=== PATIENT | female | born 1995 | race Asian ===

== ENCOUNTER 2019-07-13 09:41 | Inpatient (IN) | payer MEDICAID ==
[~2019-07-13] VITALS: Ht 152.4 cm; Wt 54.0 kg
[2019-07-13] MEDS ORDERED: LORazepam 2 MG TABLET PO PRN (10:15)
[2019-07-13] MEDS ORDERED: HALOPERIDOL 5 MG TABLET PO PRN (10:15)
[2019-07-13] MEDS ORDERED: ZOLPIDEM TARTRATE 10 MG TABLET PO PRN (10:15)
[2019-07-13 11:55] VITALS: BP 108/65
[2019-07-13 13:27] VITALS: BP 112/75
[2019-07-13] MEDS ORDERED: GLUCAGON,HUMAN RECOMBINANT 1 MG VIAL IM PRN (13:45)
[2019-07-13] MEDS ORDERED: INSULIN REGULAR, HUMAN 100 UNITS/ML SQ ONE (14:00)
[2019-07-13 14:20] LABS: GLUCOMETER DEV NAME(LOC) BV3S.; GLUCOSE,POINT OF CARE 473 MG/DL (70-110)
[2019-07-13] MEDS ORDERED: NICOTINE 14 MG/24 HOUR PATCH TD PRN (15:30)
[2019-07-13] MEDS ORDERED: MAGNESIUM HYDROXIDE SUSPENSION 30 ML UDCUP PO PRN (15:30)
[2019-07-13] MEDS ORDERED: GuaiFENesin/D-METHORPHAN [SUGAR-FREE] 200-20MG/10 ML SYRUP UDCUP PO PRN (15:30)
[2019-07-13] MEDS ORDERED: ONDANSETRON HCL 4 MG TABLET PO PRN (15:30)
[2019-07-13] MEDS ORDERED: MAG HYDROX/AL HYDROX/SIMETH ES 30 ML SUSPENSION UDCUP PO PRN (15:30)
[2019-07-13] MEDS ORDERED: IBUPROFEN 400 MG TABLET PO PRN (15:30)
[2019-07-13] MEDS ORDERED: LOPERAMIDE HCL 2 MG CAPSULE PO PRN (15:30)
[2019-07-13] MEDS ORDERED: DOCUSATE SODIUM 100 MG CAPSULE PO PRN (15:30)
[2019-07-13] MEDS ORDERED: PETROLATUM,WHITE 28 GM JELLY TP PRN (15:30)
[2019-07-13] MEDS ORDERED: ALBUTEROL SULFATE HFA 90 MCG/PUFF 8 GM INHALER IH PRN (15:30)
[2019-07-13] MEDS ORDERED: ACETAMINOPHEN 325 MG TABLET PO PRN (15:30)
[2019-07-13] MEDS ORDERED: CloNIDine HCL 0.1 MG TABLET PO PRN (15:30)
[2019-07-13 15:36] LABS: GLUCOMETER DEV NAME(LOC) BV3S.; GLUCOSE,POINT OF CARE 443 MG/DL (70-110)
[2019-07-13 16:27] VITALS: BP 124/68
[2019-07-13 16:46] LABS: GLUCOMETER DEV NAME(LOC) BV3S.; GLUCOSE,POINT OF CARE 290 MG/DL (70-110)
[2019-07-13] MEDS: INSULIN GLARGINE,HUM.REC.ANLOG 100 UNITS/ML SQ SCH (16:54)
[2019-07-13] MEDS: INSULIN LISPRO 100 UNITS/ML SQ PRN ×2 (16:55→21:33)
[2019-07-13] MEDS: BACITRACIN 28.4 GM OINTMENT TP SCH (17:02)
[2019-07-13 20:56] LABS: GLUCOMETER DEV NAME(LOC) BV3S.; GLUCOSE,POINT OF CARE 254 MG/DL (70-110)
[2019-07-13] MEDS ORDERED: DiphenhydrAMINE HCL 25 MG CAPSULE PO ONE (21:00)
[2019-07-14] MEDS: INSULIN LISPRO 100 UNITS/ML SQ PRN ×4 (06:31→21:12)
[2019-07-14 06:33] LABS: GLUCOMETER DEV NAME(LOC) BV3S.; GLUCOSE,POINT OF CARE 159 MG/DL (70-110)
[2019-07-14 06:54] VITALS: BP 118/67
[2019-07-14 08:27] LABS: EOSINOPHILS % (AUTO) 7.2 % (1.0-6.0); HEMATOCRIT 41.8 % (36-46); HEMOGLOBIN 13.6 g/dL (12.0-16.0); LYMPHOCYTES # (AUTO) 1.6 K/uL (1.0-4.8); LYMPHOCYTES % (AUTO) 26.5 % (22.0-44.0); MEAN CORPUSCULAR HEMOGLOBIN 30.6 pg (26.0-34.0); MEAN CORPUSCULAR HGB CONC 32.6 G/dL (31.0-37.0); MEAN CORPUSCULAR VOLUME 94 fL (80-100); MONOCYTES # (AUTO) 0.5 K/uL (0.1-1.0); MONOCYTES % (AUTO) 9.3 % (2.0-9.0); NEUTROPHILS # (AUTO) 3.3 K/uL (1.8-7.7); PLATELET COUNT (AUTO) 233 K/uL (150-450); RED BLOOD CELL COUNT(AUTO) 4.45 MIL/uL (4.00-5.20)
[2019-07-14 08:33] VITALS: BP 113/78
[2019-07-14] MEDS: INSULIN GLARGINE,HUM.REC.ANLOG 100 UNITS/ML SQ SCH ×2 (09:01→17:16)
[2019-07-14] MEDS: BACITRACIN 28.4 GM OINTMENT TP SCH ×2 (09:02→16:02)
[2019-07-14 09:03] LABS: ALANINE AMINOTRANSFERASE 46 U/L (12-78); ALBUMIN 3.9 g/dL (3.4-5.0); ALKALINE PHOSPHATASE 98 U/L (46-116); ANION GAP 12 mmol/L (8-16); ASPARTATE AMINOTRANSFERASE 43 U/L (15-37); BILIRUBIN,TOTAL 0.5 mg/dL (0.1-1.0); CALCIUM, TOTAL 9.1 mg/dL (8.8-10.5); CARBON DIOXIDE 26 mmol/L (22-29); CHLORIDE 102 mmol/L (98-107); CHOL/HDL RATIO 2.6 (3.9-5.7); CHOLESTEROL 181 mg/dL (131-200); CREATININE 0.72 mg/dL (0.60-1.30); GLOMERULAR FILTR. RATE CALC > 60 mL/min (>60); GLUCOSE,RANDOM 217 mg/dL (70-110); HCG,QUANTITATIVE < 1 mIU/mL (0-6); HDL CHOLESTEROL 69 mg/dL (40-60); LDL CHOL (CALC.) 94 mg/dL (0-130); POTASSIUM 4.3 mmol/L (3.5-5.1); SODIUM SERUM 140 mmol/L (136-145); TOTAL PROTEIN, SERUM 7.2 g/dL (6.4-8.2); TRIGLYCERIDES 91 mg/dL (15-150); UREA NITROGEN, BLOOD 18 mg/dL (7-18)
[2019-07-14 09:47] LABS: HEMOGLOBIN A1C 8.1 % (3.8-5.6)
[2019-07-14 11:12] LABS: GLUCOMETER DEV NAME(LOC) BV3S.; GLUCOSE,POINT OF CARE 311 MG/DL (70-110)
[2019-07-14] MEDS: OLANZapine 5 MG TABLET PO SCH (16:02)
[2019-07-14 16:23] LABS: GLUCOMETER DEV NAME(LOC) BV3S.; GLUCOSE,POINT OF CARE 271 MG/DL (70-110)
[2019-07-14 16:42] VITALS: BP 128/74
[2019-07-14 20:04] LABS: GLUCOMETER DEV NAME(LOC) BV3S.; GLUCOSE,POINT OF CARE 235 MG/DL (70-110)
[2019-07-15 02:05] VITALS: BP 120/71
[2019-07-15] MEDS ORDERED: PERMETHRIN 5% 60 GM CREAM TP ONE (06:30)
[2019-07-15 06:47] LABS: GLUCOMETER DEV NAME(LOC) BV3S.; GLUCOSE,POINT OF CARE 272 MG/DL (70-110)
[2019-07-15] MEDS: INSULIN LISPRO 100 UNITS/ML SQ PRN ×4 (06:53→20:44)
[2019-07-15 08:20] VITALS: BP 101/65
[2019-07-15] MEDS: OLANZapine 5 MG TABLET PO SCH ×2 (08:56→16:09)
[2019-07-15] MEDS: BACITRACIN 28.4 GM OINTMENT TP SCH ×2 (09:06→17:00)
[2019-07-15] MEDS: INSULIN GLARGINE,HUM.REC.ANLOG 100 UNITS/ML SQ SCH ×2 (09:06→16:24)
[2019-07-15 11:17] LABS: GLUCOMETER DEV NAME(LOC) BV3S.; GLUCOSE,POINT OF CARE 307 MG/DL (70-110)
[2019-07-15 16:34] LABS: GLUCOMETER DEV NAME(LOC) BV3S.; GLUCOSE,POINT OF CARE 267 MG/DL (70-110)
[2019-07-15 16:59] VITALS: BP 116/78
[2019-07-15 20:24] LABS: GLUCOMETER DEV NAME(LOC) BV3S.; GLUCOSE,POINT OF CARE 227 MG/DL (70-110)
[2019-07-16 05:13] VITALS: BP 101/68
[2019-07-16 06:19] LABS: GLUCOMETER DEV NAME(LOC) BV3S.; GLUCOSE,POINT OF CARE 241 MG/DL (70-110)
[2019-07-16] MEDS: INSULIN LISPRO 100 UNITS/ML SQ PRN ×4 (06:45→21:12)
[2019-07-16 08:44] VITALS: BP 108/78
[2019-07-16] MEDS: OLANZapine 5 MG TABLET PO SCH ×2 (08:58→16:56)
[2019-07-16] MEDS: BACITRACIN 28.4 GM OINTMENT TP SCH ×2 (08:58→16:56)
[2019-07-16] MEDS: INSULIN GLARGINE,HUM.REC.ANLOG 100 UNITS/ML SQ SCH ×2 (09:03→17:02)
[2019-07-16 11:12] LABS: GLUCOMETER DEV NAME(LOC) BV3S.; GLUCOSE,POINT OF CARE 345 MG/DL (70-110)
[2019-07-16 16:20] VITALS: BP 111/59
[2019-07-16 16:30] LABS: GLUCOMETER DEV NAME(LOC) BV3S.; GLUCOSE,POINT OF CARE 283 MG/DL (70-110)
[2019-07-16 20:27] LABS: GLUCOMETER DEV NAME(LOC) BV3S.; GLUCOSE,POINT OF CARE 186 MG/DL (70-110)
[2019-07-17 06:22] LABS: GLUCOMETER DEV NAME(LOC) BV3S.; GLUCOSE,POINT OF CARE 312 MG/DL (70-110)
[2019-07-17 06:45] VITALS: BP 123/75
[2019-07-17] MEDS: INSULIN LISPRO 100 UNITS/ML SQ PRN ×4 (06:46→21:37)
[2019-07-17 08:23] VITALS: BP 120/80
[2019-07-17] MEDS: OLANZapine 5 MG TABLET PO SCH ×2 (09:15→16:35)
[2019-07-17] MEDS: BACITRACIN 28.4 GM OINTMENT TP SCH ×2 (09:33→16:54)
[2019-07-17] MEDS: INSULIN GLARGINE,HUM.REC.ANLOG 100 UNITS/ML SQ SCH ×2 (09:48→16:49)
[2019-07-17 09:57] LABS: GLUCOMETER DEV NAME(LOC) BV3S.; GLUCOSE,POINT OF CARE 278 MG/DL (70-110)
[2019-07-17 12:35] LABS: GLUCOMETER DEV NAME(LOC) BV3S.; GLUCOSE,POINT OF CARE 332 MG/DL (70-110)
[2019-07-17 16:20] LABS: GLUCOMETER DEV NAME(LOC) BV3S.; GLUCOSE,POINT OF CARE 233 MG/DL (70-110)
[2019-07-17 16:24] VITALS: BP 141/91
[2019-07-17 20:24] LABS: GLUCOMETER DEV NAME(LOC) BV3S.; GLUCOSE,POINT OF CARE 177 MG/DL (70-110)
[2019-07-18 06:03] VITALS: BP 127/80
[2019-07-18] MEDS: INSULIN LISPRO 100 UNITS/ML SQ PRN ×4 (06:07→20:58)
[2019-07-18 08:29] VITALS: BP 110/69
[2019-07-18 09:02] LABS: AMPHET/METH SCREEN,URINE NEGATIVE (NEGATIVE); BARBITURATE SCREEN, URINE NEGATIVE (NEGATIVE); BENZODIAZEPINES SCREEN,URINE NEGATIVE (NEGATIVE); CANNABINOID SCREEN,URINE NEGATIVE (NEGATIVE); COCAINE SCREEN,URINE NEGATIVE (NEGATIVE); METHADONE SCREEN, URINE NEGATIVE (NEGATIVE); OPIATE SCREEN,URINE NEGATIVE (NEGATIVE)
[2019-07-18 09:03] LABS: PHENCYCLIDINE SCREEN,URINE NEGATIVE (NEGATIVE)
[2019-07-18] MEDS: OLANZapine 5 MG TABLET PO SCH ×2 (09:06→16:31)
[2019-07-18] MEDS: BACITRACIN 28.4 GM OINTMENT TP SCH ×2 (09:07→16:32)
[2019-07-18 09:11] LABS: APPEARANCE,URINE CLOUDY (CLEAR); BILIRUBIN,URINE NEGATIVE (NEGATIVE); GLUCOSE, URINE (UA) NEGATIVE (NEGATIVE); KETONES,URINE 40 mg/dL (NEGATIVE); LEUKOCYTE ESTERASE ,URINE SMALL (NEGATIVE); NITRATE,URINE NEGATIVE (NEGATIVE); OCCULT BLOOD,URINE NEGATIVE (NEGATIVE); PROTEIN,URINE NEGATIVE (NEGATIVE)
[2019-07-18] MEDS: INSULIN GLARGINE,HUM.REC.ANLOG 100 UNITS/ML SQ SCH ×2 (09:12→16:36)
[2019-07-18 09:29] LABS: BACTERIA,URINE None Seen /HPF (None Seen); RBC,URINE 0-2 /HPF (0-2); SQUAMOUS EPITHELIAL CELL,UR Many /LPF (None Seen)
[2019-07-18 12:05] LABS: GLUCOMETER DEV NAME(LOC) BV3S.; GLUCOSE,POINT OF CARE 342 MG/DL (70-110)
[2019-07-18 16:17] LABS: GLUCOMETER DEV NAME(LOC) BV3S.; GLUCOSE,POINT OF CARE 262 MG/DL (70-110)
[2019-07-18 16:24] VITALS: BP 125/80
[2019-07-18 23:37] LABS: GLUCOMETER DEV NAME(LOC) BV3S.; GLUCOSE,POINT OF CARE 300 MG/DL (70-110)
[2019-07-19 01:56] VITALS: BP 123/77
[2019-07-19] MEDS: INSULIN LISPRO 100 UNITS/ML SQ PRN ×4 (06:20→20:35)
[2019-07-19 06:26] LABS: GLUCOMETER DEV NAME(LOC) BV3S.; GLUCOSE,POINT OF CARE 275 MG/DL (70-110)
[2019-07-19] MEDS: BACITRACIN 28.4 GM OINTMENT TP SCH ×2 (08:08→16:32)
[2019-07-19] MEDS: OLANZapine 5 MG TABLET PO SCH ×2 (08:08→16:35)
[2019-07-19 08:23] VITALS: BP 104/64
[2019-07-19] MEDS: INSULIN GLARGINE,HUM.REC.ANLOG 100 UNITS/ML SQ SCH ×2 (08:37→16:40)
[2019-07-19 11:10] LABS: GLUCOMETER DEV NAME(LOC) BV3S.; GLUCOSE,POINT OF CARE 354 MG/DL (70-110)
[2019-07-19 16:15] LABS: GLUCOMETER DEV NAME(LOC) BV3S.; GLUCOSE,POINT OF CARE 183 MG/DL (70-110)
[2019-07-19 17:28] VITALS: BP 126/81
[2019-07-19 23:09] LABS: GLUCOMETER DEV NAME(LOC) BV3S.; GLUCOSE,POINT OF CARE 288 MG/DL (70-110)
[2019-07-20 02:32] VITALS: BP 122/77
[2019-07-20 06:24] LABS: GLUCOMETER DEV NAME(LOC) BV3S.; GLUCOSE,POINT OF CARE 270 MG/DL (70-110)
[2019-07-20] MEDS: INSULIN LISPRO 100 UNITS/ML SQ PRN ×4 (06:31→20:52)
[2019-07-20] MEDS: OLANZapine 5 MG TABLET PO SCH ×2 (08:17→16:03)
[2019-07-20] MEDS: BACITRACIN 28.4 GM OINTMENT TP SCH ×2 (08:17→16:56)
[2019-07-20 08:32] VITALS: BP 107/61
[2019-07-20] MEDS: INSULIN GLARGINE,HUM.REC.ANLOG 100 UNITS/ML SQ SCH ×2 (08:41→16:30)
[2019-07-20 11:09] LABS: GLUCOMETER DEV NAME(LOC) BV3S.; GLUCOSE,POINT OF CARE 273 MG/DL (70-110)
[2019-07-20 16:26] LABS: GLUCOMETER DEV NAME(LOC) BV3S.; GLUCOSE,POINT OF CARE 314 MG/DL (70-110)
[2019-07-20 18:58] VITALS: BP 131/84
[2019-07-20 20:52] LABS: GLUCOMETER DEV NAME(LOC) BV3S.; GLUCOSE,POINT OF CARE 228 MG/DL (70-110)
[2019-07-21 04:43] VITALS: BP 122/76
[2019-07-21] MEDS: INSULIN LISPRO 100 UNITS/ML SQ PRN ×4 (06:33→20:32)
[2019-07-21 06:39] LABS: GLUCOMETER DEV NAME(LOC) BV3S.; GLUCOSE,POINT OF CARE 279 MG/DL (70-110)
[2019-07-21 08:26] VITALS: BP 119/83
[2019-07-21] MEDS: OLANZapine 5 MG TABLET PO SCH ×2 (08:35→16:52)
[2019-07-21] MEDS: BACITRACIN 28.4 GM OINTMENT TP SCH ×2 (09:52→16:52)
[2019-07-21 09:56] LABS: GLUCOMETER DEV NAME(LOC) BV3S.; GLUCOSE,POINT OF CARE 338 MG/DL (70-110)
[2019-07-21 11:31] LABS: GLUCOMETER DEV NAME(LOC) BV3S.; GLUCOSE,POINT OF CARE 335 MG/DL (70-110)
[2019-07-21 16:09] VITALS: BP 120/76
[2019-07-21 16:34] LABS: GLUCOMETER DEV NAME(LOC) BV3S.; GLUCOSE,POINT OF CARE 311 MG/DL (70-110)
[2019-07-21] MEDS: INSULIN GLARGINE,HUM.REC.ANLOG 100 UNITS/ML SQ SCH (16:52)
[2019-07-21 20:23] LABS: GLUCOMETER DEV NAME(LOC) BV3S.; GLUCOSE,POINT OF CARE 202 MG/DL (70-110)
[2019-07-22 04:35] VITALS: BP 116/71
[2019-07-22 06:26] LABS: GLUCOMETER DEV NAME(LOC) BV3S.; GLUCOSE,POINT OF CARE 241 MG/DL (70-110)
[2019-07-22] MEDS: INSULIN LISPRO 100 UNITS/ML SQ PRN ×4 (06:27→21:01)
[2019-07-22] MEDS: OLANZapine 5 MG TABLET PO SCH ×2 (08:17→16:44)
[2019-07-22 08:30] VITALS: BP 115/73
[2019-07-22] MEDS: INSULIN GLARGINE,HUM.REC.ANLOG 100 UNITS/ML SQ SCH ×2 (08:30→18:06)
[2019-07-22] MEDS: BACITRACIN 28.4 GM OINTMENT TP SCH ×2 (08:43→17:36)
[2019-07-22 09:45] LABS: GLUCOMETER DEV NAME(LOC) BV3S.; GLUCOSE,POINT OF CARE 317 MG/DL (70-110)
[2019-07-22 11:52] LABS: GLUCOMETER DEV NAME(LOC) BV3S.; GLUCOSE,POINT OF CARE 333 MG/DL (70-110)
[2019-07-22 16:00] VITALS: BP 121/71
[2019-07-22 16:54] LABS: GLUCOMETER DEV NAME(LOC) BV3S.; GLUCOSE,POINT OF CARE 325 MG/DL (70-110)
[2019-07-22 21:15] LABS: GLUCOMETER DEV NAME(LOC) BV3S.; GLUCOSE,POINT OF CARE 248 MG/DL (70-110)
[2019-07-23 04:40] VITALS: BP 100/75
[2019-07-23] MEDS: INSULIN LISPRO 100 UNITS/ML SQ PRN ×4 (05:52→23:09)
[2019-07-23 05:59] LABS: GLUCOMETER DEV NAME(LOC) BV3S.; GLUCOSE,POINT OF CARE 287 MG/DL (70-110)
[2019-07-23 08:18] VITALS: BP 100/62
[2019-07-23] MEDS: OLANZapine 5 MG TABLET PO SCH ×2 (09:14→17:28)
[2019-07-23] MEDS: BACITRACIN 28.4 GM OINTMENT TP SCH (09:14)
[2019-07-23] MEDS: INSULIN GLARGINE,HUM.REC.ANLOG 100 UNITS/ML SQ SCH ×2 (09:20→17:32)
[2019-07-23 11:13] LABS: GLUCOMETER DEV NAME(LOC) BV3S.; GLUCOSE,POINT OF CARE 379 MG/DL (70-110)
[2019-07-23 16:28] VITALS: BP 114/76
[2019-07-23 16:35] LABS: GLUCOMETER DEV NAME(LOC) BV3S.; GLUCOSE,POINT OF CARE 351 MG/DL (70-110)
[2019-07-23 21:40] LABS: GLUCOMETER DEV NAME(LOC) BV3S.; GLUCOSE,POINT OF CARE 219 MG/DL (70-110)
[2019-07-24 01:18] VITALS: BP 107/74
[2019-07-24 03:23] LABS: GLUCOMETER DEV NAME(LOC) BV3S.; GLUCOSE,POINT OF CARE 119 MG/DL (70-110)
[2019-07-24] MEDS: INSULIN LISPRO 100 UNITS/ML SQ PRN ×2 (06:16→20:47)
[2019-07-24 06:23] LABS: GLUCOMETER DEV NAME(LOC) BV3S.; GLUCOSE,POINT OF CARE 241 MG/DL (70-110)
[2019-07-24 08:35] VITALS: BP 113/77
[2019-07-24] MEDS: OLANZapine 5 MG TABLET PO SCH ×2 (08:37→17:08)
[2019-07-24] MEDS: INSULIN GLARGINE,HUM.REC.ANLOG 100 UNITS/ML SQ SCH ×2 (08:50→17:12)
[2019-07-24] MEDS ORDERED: INSULIN REGULAR, HUMAN 100 UNITS/ML SQ ONE (11:15)
[2019-07-24 11:22] LABS: GLUCOMETER DEV NAME(LOC) BV3S.; GLUCOSE,POINT OF CARE 428 MG/DL (70-110)
[2019-07-24] MEDS ORDERED: INSULIN LISPRO 100 UNITS/ML SQ ONE (12:00)
[2019-07-24 12:10] LABS: GLUCOMETER DEV NAME(LOC) BV3S.; GLUCOSE,POINT OF CARE 360 MG/DL (70-110)
[2019-07-24 16:42] LABS: GLUCOMETER DEV NAME(LOC) BV3S.; GLUCOSE,POINT OF CARE 199 MG/DL (70-110)
[2019-07-24 17:13] VITALS: BP 106/70
[2019-07-24 20:11] LABS: GLUCOMETER DEV NAME(LOC) BV3S.; GLUCOSE,POINT OF CARE 262 MG/DL (70-110)
[2019-07-25 02:45] VITALS: BP 105/76
[2019-07-25 06:09] LABS: GLUCOMETER DEV NAME(LOC) BV3S.; GLUCOSE,POINT OF CARE 190 MG/DL (70-110)
[2019-07-25] MEDS: INSULIN LISPRO 100 UNITS/ML SQ PRN ×4 (06:23→21:01)
[2019-07-25 08:47] VITALS: BP 123/65
[2019-07-25] MEDS: OLANZapine 5 MG TABLET PO SCH ×2 (08:51→16:07)
[2019-07-25] MEDS: INSULIN GLARGINE,HUM.REC.ANLOG 100 UNITS/ML SQ SCH ×2 (08:55→17:23)
[2019-07-25 11:14] LABS: GLUCOMETER DEV NAME(LOC) BV3S.; GLUCOSE,POINT OF CARE 324 MG/DL (70-110)
[2019-07-25 16:14] LABS: GLUCOMETER DEV NAME(LOC) BV3S.; GLUCOSE,POINT OF CARE 320 MG/DL (70-110)
[2019-07-25 16:24] VITALS: BP 115/78
[2019-07-25 20:29] LABS: GLUCOMETER DEV NAME(LOC) BV3S.; GLUCOSE,POINT OF CARE 243 MG/DL (70-110)
[2019-07-26 02:14] VITALS: BP 124/73
[2019-07-26] MEDS: INSULIN LISPRO 100 UNITS/ML SQ PRN ×4 (06:09→22:07)
[2019-07-26 08:19] VITALS: BP 100/62
[2019-07-26] MEDS: OLANZapine 5 MG TABLET PO SCH (09:04)
[2019-07-26] MEDS: INSULIN GLARGINE,HUM.REC.ANLOG 100 UNITS/ML SQ SCH ×2 (09:32→17:06)
[2019-07-26 09:41] LABS: GLUCOMETER DEV NAME(LOC) BV3S.; GLUCOSE,POINT OF CARE 384 MG/DL (70-110)
[2019-07-26 11:52] LABS: GLUCOMETER DEV NAME(LOC) BV3S.; GLUCOSE,POINT OF CARE 354 MG/DL (70-110)
[2019-07-26] MEDS: OLANZapine 7.5 MG TABLET PO SCH (16:54)
[2019-07-26 17:12] VITALS: BP 103/73
[2019-07-26 18:57] LABS: GLUCOMETER DEV NAME(LOC) BV3S.; GLUCOSE,POINT OF CARE 233 MG/DL (70-110)
[2019-07-26 23:21] LABS: GLUCOMETER DEV NAME(LOC) BV3S.; GLUCOSE,POINT OF CARE 270 MG/DL (70-110)
[2019-07-27] MEDS: INSULIN LISPRO 100 UNITS/ML SQ PRN ×4 (05:46→20:42)
[2019-07-27 06:00] VITALS: BP 106/66
[2019-07-27 08:36] VITALS: BP 107/69
[2019-07-27] MEDS: OLANZapine 7.5 MG TABLET PO SCH ×2 (08:52→17:02)
[2019-07-27] MEDS: INSULIN GLARGINE,HUM.REC.ANLOG 100 UNITS/ML SQ SCH (08:56)
[2019-07-27 11:19] LABS: GLUCOMETER DEV NAME(LOC) BV3S.; GLUCOSE,POINT OF CARE 398 MG/DL (70-110)
[2019-07-27] MEDS ORDERED: INSULIN LISPRO 100 UNITS/ML SQ PRN (14:45)
[2019-07-27] MEDS ORDERED: DEXTROSE 50%-WATER 25 GM/50 ML SYRINGE IVP PRN (14:45)
[2019-07-27] MEDS ORDERED: GLUCAGON,HUMAN RECOMBINANT 1 MG VIAL IM PRN (15:00)
[2019-07-27 16:09] VITALS: BP 106/67
[2019-07-27 16:21] LABS: GLUCOMETER DEV NAME(LOC) BV3S.; GLUCOSE,POINT OF CARE 243 MG/DL (70-110)
[2019-07-27 20:21] LABS: GLUCOMETER DEV NAME(LOC) BV3S.; GLUCOSE,POINT OF CARE 335 MG/DL (70-110)
[2019-07-28 01:46] VITALS: BP 104/74
[2019-07-28] MEDS: INSULIN LISPRO 100 UNITS/ML SQ PRN ×4 (06:13→21:27)
[2019-07-28 06:46] LABS: GLUCOMETER DEV NAME(LOC) BV3S.; GLUCOSE,POINT OF CARE 350 MG/DL (70-110)
[2019-07-28 08:35] VITALS: BP 100/57
[2019-07-28] MEDS: OLANZapine 7.5 MG TABLET PO SCH ×2 (09:40→16:51)
[2019-07-28] MEDS: THIAMINE 100 MG TABLET PO SCH (09:40)
[2019-07-28] MEDS: FOLIC ACID 1 MG TABLET PO SCH (09:40)
[2019-07-28 11:35] LABS: GLUCOMETER DEV NAME(LOC) BV3S.; GLUCOSE,POINT OF CARE 371 MG/DL (70-110)
[2019-07-28 16:22] VITALS: BP 124/69
[2019-07-28 16:22] LABS: GLUCOMETER DEV NAME(LOC) BV3S.; GLUCOSE,POINT OF CARE 308 MG/DL (70-110)
[2019-07-28 20:24] LABS: GLUCOMETER DEV NAME(LOC) BV3S.; GLUCOSE,POINT OF CARE 212 MG/DL (70-110)
[2019-07-28] MEDS ORDERED: OLAN7.5T2 PO (21:37)
[2019-07-29 06:23] VITALS: BP 117/78
[2019-07-29] MEDS ORDERED: INSULIN LISPRO 100 UNITS/ML SQ ONE ×2 (06:45→09:45)
[2019-07-29] MEDS ORDERED: METF-960 PO ×2 (06:46→06:47)
[2019-07-29] MEDS: THIAMINE 100 MG TABLET PO SCH (08:35)
[2019-07-29] MEDS: OLANZapine 7.5 MG TABLET PO SCH (08:35)
[2019-07-29] MEDS: FOLIC ACID 1 MG TABLET PO SCH (08:35)
[2019-07-29 08:37] VITALS: BP 102/69
[2019-07-29 08:42] LABS: GLUCOMETER DEV NAME(LOC) BV3S.; GLUCOSE,POINT OF CARE 462 MG/DL (70-110)
[2019-07-29 08:42] LABS: GLUCOMETER DEV NAME(LOC) BV3S.; GLUCOSE,POINT OF CARE 447 MG/DL (70-110)
[2019-07-29] MEDS ORDERED: MetFORMIN HCL 500 MG TABLET PO SCH (09:00)
[2019-07-29 09:46] LABS: GLUCOMETER DEV NAME(LOC) BV3S.; GLUCOSE,POINT OF CARE 397 MG/DL (70-110)
== END 2019-07-29 09:50 | disposition home or self-care (01) | DRG 750 ==
LOC: B3A 12:45
PROVIDERS: ADMIT Psychiatry & Neurology Psychiatry; ATTEND Psychiatry & Neurology Psychiatry
DX: F20.0 Paranoid schizophrenia (principal); E10.9 Type 1 diabetes mellitus without complications; F41.8 Other specified anxiety disorders; Z79.4 Long term (current) use of insulin; Z87.891 Personal history of nicotine dependence; Z91.19 Patient's noncompliance with other medical treatment and regimen
CPT/HCPCS: 80307; 83036; 84443; J1815

== ENCOUNTER 2019-10-05 17:28 | Inpatient (IN) | payer MEDICAID ==
[~2019-10-05] VITALS: Ht 152.4 cm; Wt 56.2 kg
[~2019-10-05 17:28] MED LIST: METF-960 PO; OLAN7.5T2 PO
[2019-10-05] MEDS ORDERED: ZOLPIDEM TARTRATE 10 MG TABLET PO PRN (20:15)
[2019-10-05] MEDS ORDERED: LORazepam 2 MG TABLET PO PRN (20:15)
[2019-10-05] MEDS ORDERED: PNEUMOCOCCAL VACCINE POLYVALENT 0.5 ML VIAL [PPSV23] IM ONE (20:15)
[2019-10-05] MEDS ORDERED: HALOPERIDOL 5 MG TABLET PO PRN (20:15)
[2019-10-05 21:05] VITALS: BP 112/82
[2019-10-05] MEDS ORDERED: GLUCAGON,HUMAN RECOMBINANT 1 MG VIAL IM PRN (21:30)
[2019-10-05] MEDS: INSULIN GLARGINE,HUM.REC.ANLOG 100 UNITS/ML SQ SCH (22:09)
[2019-10-06 04:38] VITALS: BP 109/78
[2019-10-06] MEDS: INSULIN LISPRO 100 UNITS/ML SQ PRN ×4 (06:56→21:03)
[2019-10-06 07:06] LABS: GLUCOMETER DEV NAME(LOC) BV3S.; GLUCOSE,POINT OF CARE 286 MG/DL (70-110)
[2019-10-06 08:24] VITALS: BP 101/75
[2019-10-06] MEDS: CEPHALEXIN MONOHYDRATE 250 MG CAPSULE PO SCH ×2 (08:30→15:56)
[2019-10-06 08:40] LABS: BASOPHILS % (AUTO) 1.1 % (0.0-2.0); EOSINOPHILS % (AUTO) 5.6 % (1.0-6.0); HEMATOCRIT 43.6 % (36-46); HEMOGLOBIN 14.7 g/dL (12.0-16.0); LYMPHOCYTES # (AUTO) 1.4 K/uL (1.0-4.8); LYMPHOCYTES % (AUTO) 32.5 % (22.0-44.0); MEAN CORPUSCULAR HGB CONC 33.7 G/dL (31.0-37.0); MEAN CORPUSCULAR VOLUME 92 fL (80-100); MONOCYTES # (AUTO) 0.3 K/uL (0.1-1.0); MONOCYTES % (AUTO) 6.5 % (2.0-9.0); NEUTROPHILS # (AUTO) 2.4 K/uL (1.8-7.7); NEUTROPHILS % (AUTO) 54.3 % (40.0-70.0); PLATELET COUNT (AUTO) 244 K/uL (150-450); RED BLOOD CELL COUNT(AUTO) 4.73 MIL/uL (4.00-5.20); RED CELL DISTRIBUTION WIDTH 11.2 % (11.5-14.5)
[2019-10-06] MEDS ORDERED: LOPERAMIDE HCL 2 MG CAPSULE PO PRN (08:45)
[2019-10-06] MEDS ORDERED: MAGNESIUM HYDROXIDE SUSPENSION 30 ML UDCUP PO PRN (08:45)
[2019-10-06] MEDS ORDERED: IBUPROFEN 600 MG TABLET PO PRN (08:45)
[2019-10-06] MEDS ORDERED: ONDANSETRON HCL 4 MG TABLET PO PRN (08:45)
[2019-10-06] MEDS ORDERED: ACETAMINOPHEN 325 MG TABLET PO PRN (08:45)
[2019-10-06] MEDS ORDERED: ALBUTEROL SULFATE HFA 90 MCG/PUFF 8 GM INHALER IH PRN (08:45)
[2019-10-06] MEDS ORDERED: OMEPRAZOLE 20 MG CAPSULE PO PRN (08:45)
[2019-10-06] MEDS ORDERED: CloNIDine HCL 0.1 MG TABLET PO PRN (08:45)
[2019-10-06] MEDS ORDERED: MAG HYDROX/AL HYDROX/SIMETH ES 30 ML SUSPENSION UDCUP PO PRN (08:45)
[2019-10-06] MEDS ORDERED: BENZOCAINE/MENTHOL LOZENGE PO PRN (08:45)
[2019-10-06] MEDS ORDERED: BACITRACIN 28.4 GM OINTMENT TP PRN (08:45)
[2019-10-06] MEDS ORDERED: DOCUSATE SODIUM 100 MG CAPSULE PO PRN (08:45)
[2019-10-06] MEDS ORDERED: PETROLATUM,WHITE 28 GM JELLY TP PRN (08:45)
[2019-10-06 08:50] LABS: HEMOGLOBIN A1C 8.8 % (3.8-5.6)
[2019-10-06] MEDS: INSULIN GLARGINE,HUM.REC.ANLOG 100 UNITS/ML SQ SCH ×2 (08:50→17:37)
[2019-10-06 09:06] LABS: ALANINE AMINOTRANSFERASE 22 U/L (12-78); ALBUMIN 3.5 g/dL (3.4-5.0); ALKALINE PHOSPHATASE 86 U/L (46-116); ANION GAP 7 mmol/L (8-16); ASPARTATE AMINOTRANSFERASE 15 U/L (15-37); BILIRUBIN,TOTAL 0.5 mg/dL (0.1-1.0); CALCIUM, TOTAL 9.3 mg/dL (8.8-10.5); CARBON DIOXIDE 28 mmol/L (22-29); CHLORIDE 102 mmol/L (98-107); CHOL/HDL RATIO 3.2 (3.9-5.7); CHOLESTEROL 199 mg/dL (131-200); CREATININE 0.86 mg/dL (0.60-1.30); FREE T4 (FREE THYROXINE) 1.07 ng/dL (0.76-1.46); GLOMERULAR FILTR. RATE CALC > 60 mL/min (>60); GLUCOSE,RANDOM 303 mg/dL (70-110); HCG,QUANTITATIVE < 1 mIU/mL (0-6); HDL CHOLESTEROL 63 mg/dL (40-60); LDL CHOL (CALC.) 113 mg/dL (0-130); SODIUM SERUM 137 mmol/L (136-145); THYROID STIMULATING HORMONE 1.01 uIU/mL (0.36-3.74); TOTAL PROTEIN, SERUM 7.3 g/dL (6.4-8.2); TRIGLYCERIDES 113 mg/dL (15-150); UREA NITROGEN, BLOOD 22 mg/dL (7-18)
[2019-10-06 11:57] LABS: GLUCOMETER DEV NAME(LOC) BV3S.; GLUCOSE,POINT OF CARE 313 MG/DL (70-110)
[2019-10-06 16:10] VITALS: BP 116/78
[2019-10-06 16:33] LABS: GLUCOMETER DEV NAME(LOC) BV3S.; GLUCOSE,POINT OF CARE 217 MG/DL (70-110)
[2019-10-06] MEDS: OLANZapine 7.5 MG TABLET PO SCH (19:51)
[2019-10-06 20:03] LABS: GLUCOMETER DEV NAME(LOC) BV3S.; GLUCOSE,POINT OF CARE 186 MG/DL (70-110)
[2019-10-07 00:37] VITALS: BP 106/72
[2019-10-07 06:39] LABS: GLUCOMETER DEV NAME(LOC) BV3S.; GLUCOSE,POINT OF CARE 138 MG/DL (70-110)
[2019-10-07] MEDS: CEPHALEXIN MONOHYDRATE 250 MG CAPSULE PO SCH ×2 (08:28→16:24)
[2019-10-07 08:30] VITALS: BP 100/60
[2019-10-07] MEDS: INSULIN GLARGINE,HUM.REC.ANLOG 100 UNITS/ML SQ SCH ×2 (08:56→17:06)
[2019-10-07] MEDS: INSULIN LISPRO 100 UNITS/ML SQ PRN ×3 (12:03→22:14)
[2019-10-07 12:23] LABS: GLUCOMETER DEV NAME(LOC) BV3S.; GLUCOSE,POINT OF CARE 372 MG/DL (70-110)
[2019-10-07 16:10] VITALS: BP 110/76
[2019-10-07 17:05] LABS: GLUCOMETER DEV NAME(LOC) BV3S.; GLUCOSE,POINT OF CARE 232 MG/DL (70-110)
[2019-10-07 19:39] LABS: GLUCOMETER DEV NAME(LOC) BV3S.; GLUCOSE,POINT OF CARE 230 MG/DL (70-110)
[2019-10-07] MEDS: OLANZapine 7.5 MG TABLET PO SCH (20:07)
[2019-10-08 01:08] VITALS: BP 104/71
[2019-10-08 06:09] LABS: GLUCOMETER DEV NAME(LOC) BV3S.; GLUCOSE,POINT OF CARE 86 MG/DL (70-110)
[2019-10-08 08:11] LABS: AMPHET/METH SCREEN,URINE NEGATIVE (NEGATIVE); BARBITURATE SCREEN, URINE NEGATIVE (NEGATIVE); BENZODIAZEPINES SCREEN,URINE NEGATIVE (NEGATIVE); CANNABINOID SCREEN,URINE NEGATIVE (NEGATIVE); COCAINE SCREEN,URINE NEGATIVE (NEGATIVE); METHADONE SCREEN, URINE NEGATIVE (NEGATIVE); OPIATE SCREEN,URINE NEGATIVE (NEGATIVE)
[2019-10-08 08:12] LABS: APPEARANCE,URINE CLOUDY (CLEAR); BILIRUBIN,URINE NEGATIVE (NEGATIVE); GLUCOSE, URINE (UA) >=1000 mg/dL (NEGATIVE); KETONES,URINE TRACE mg/dL (NEGATIVE); LEUKOCYTE ESTERASE ,URINE MODERATE (NEGATIVE); NITRATE,URINE NEGATIVE (NEGATIVE); OCCULT BLOOD,URINE TRACE (NEGATIVE); PROTEIN,URINE NEGATIVE (NEGATIVE); UROBILINOGEN,URINE 0.2 mg/dL (<=1.0)
[2019-10-08 08:15] LABS: PHENCYCLIDINE SCREEN,URINE NEGATIVE (NEGATIVE)
[2019-10-08 08:27] LABS: BACTERIA,URINE Moderate /HPF (None Seen); RBC,URINE 0-2 /HPF (0-2); SQUAMOUS EPITHELIAL CELL,UR Many /LPF (None Seen)
[2019-10-08] MEDS: CEPHALEXIN MONOHYDRATE 250 MG CAPSULE PO SCH ×2 (08:27→17:40)
[2019-10-08 08:39] VITALS: BP 93/64
[2019-10-08] MEDS: INSULIN GLARGINE,HUM.REC.ANLOG 100 UNITS/ML SQ SCH ×2 (08:42→18:15)
[2019-10-08 08:53] LABS: GLUCOMETER DEV NAME(LOC) BV3S.; GLUCOSE,POINT OF CARE 311 MG/DL (70-110)
[2019-10-08] MEDS ORDERED: OLAN7.5T2 PO (10:04)
[2019-10-08] MEDS ORDERED: CEPH250 PO (10:05)
[2019-10-08] MEDS: INSULIN LISPRO 100 UNITS/ML SQ PRN ×2 (11:20→20:46)
[2019-10-08 11:27] LABS: GLUCOMETER DEV NAME(LOC) BV3S.; GLUCOSE,POINT OF CARE 250 MG/DL (70-110)
[2019-10-08 17:29] VITALS: BP 107/80
[2019-10-08 18:19] LABS: GLUCOMETER DEV NAME(LOC) BV3S.; GLUCOSE,POINT OF CARE 240 MG/DL (70-110)
[2019-10-08] MEDS: OLANZapine 7.5 MG TABLET PO SCH (20:15)
[2019-10-08 20:51] LABS: GLUCOMETER DEV NAME(LOC) BV3S.; GLUCOSE,POINT OF CARE 239 MG/DL (70-110)
[2019-10-09 05:22] VITALS: BP 101/64
[2019-10-09 06:31] LABS: GLUCOMETER DEV NAME(LOC) BV3S.; GLUCOSE,POINT OF CARE 106 MG/DL (70-110)
[2019-10-09 08:23] VITALS: BP 102/66
[2019-10-09] MEDS: CEPHALEXIN MONOHYDRATE 250 MG CAPSULE PO SCH ×2 (09:11→16:52)
[2019-10-09] MEDS: INSULIN GLARGINE,HUM.REC.ANLOG 100 UNITS/ML SQ SCH ×2 (09:19→16:44)
[2019-10-09 09:30] LABS: GLUCOMETER DEV NAME(LOC) BV3S.; GLUCOSE,POINT OF CARE 270 MG/DL (70-110)
[2019-10-09] MEDS: INSULIN LISPRO 100 UNITS/ML SQ PRN ×3 (11:25→21:20)
[2019-10-09 11:30] LABS: GLUCOMETER DEV NAME(LOC) BV3S.; GLUCOSE,POINT OF CARE 265 MG/DL (70-110)
[2019-10-09 16:56] LABS: GLUCOMETER DEV NAME(LOC) BV3S.; GLUCOSE,POINT OF CARE 215 MG/DL (70-110)
[2019-10-09 17:02] VITALS: BP 102/62
[2019-10-09] MEDS: OLANZapine 7.5 MG TABLET PO SCH (20:42)
[2019-10-09 21:32] LABS: GLUCOMETER DEV NAME(LOC) BV3S.; GLUCOSE,POINT OF CARE 218 MG/DL (70-110)
[2019-10-10 05:38] VITALS: BP 100/56
[2019-10-10] MEDS: INSULIN LISPRO 100 UNITS/ML SQ PRN ×4 (06:28→21:34)
[2019-10-10 06:31] LABS: GLUCOMETER DEV NAME(LOC) BV3S.; GLUCOSE,POINT OF CARE 157 MG/DL (70-110)
[2019-10-10 08:39] VITALS: BP 98/54
[2019-10-10] MEDS: INSULIN GLARGINE,HUM.REC.ANLOG 100 UNITS/ML SQ SCH ×2 (09:04→16:59)
[2019-10-10] MEDS: CEPHALEXIN MONOHYDRATE 250 MG CAPSULE PO SCH ×2 (09:06→16:54)
[2019-10-10 12:03] LABS: GLUCOMETER DEV NAME(LOC) BV3S.; GLUCOSE,POINT OF CARE 172 MG/DL (70-110)
[2019-10-10 16:15] LABS: GLUCOMETER DEV NAME(LOC) BV3S.; GLUCOSE,POINT OF CARE 201 MG/DL (70-110)
[2019-10-10 16:17] VITALS: BP 109/66
[2019-10-10] MEDS: OLANZapine 7.5 MG TABLET PO SCH (21:22)
[2019-10-10 22:09] LABS: GLUCOMETER DEV NAME(LOC) BV3S.; GLUCOSE,POINT OF CARE 241 MG/DL (70-110)
[2019-10-10 22:09] LABS: GLUCOMETER DEV NAME(LOC) BV3S.; GLUCOSE,POINT OF CARE 291 MG/DL (70-110)
[2019-10-11 01:19] VITALS: BP 103/69
[2019-10-11] MEDS: INSULIN LISPRO 100 UNITS/ML SQ PRN ×3 (06:04→17:35)
[2019-10-11 06:11] LABS: GLUCOMETER DEV NAME(LOC) BV3S.; GLUCOSE,POINT OF CARE 177 MG/DL (70-110)
[2019-10-11] MEDS ORDERED: INSLAN SQ (08:14)
[2019-10-11 08:38] VITALS: BP 96/61
[2019-10-11] MEDS: INSULIN GLARGINE,HUM.REC.ANLOG 100 UNITS/ML SQ SCH ×2 (08:54→17:35)
[2019-10-11 13:07] LABS: GLUCOMETER DEV NAME(LOC) BV3S.; GLUCOSE,POINT OF CARE 239 MG/DL (70-110)
[2019-10-11 16:11] VITALS: BP 108/79
[2019-10-11 16:18] LABS: GLUCOMETER DEV NAME(LOC) BV3S.; GLUCOSE,POINT OF CARE 166 MG/DL (70-110)
== END 2019-10-11 19:00 | disposition home or self-care (01) | DRG 750 ==
LOC: B3A 20:16
PROVIDERS: ADMIT Psychiatry & Neurology Psychiatry; ATTEND Psychiatry & Neurology Psychiatry
DX: F25.9 Schizoaffective disorder, unspecified (principal); F41.9 Anxiety disorder, unspecified; G47.00 Insomnia, unspecified; Q90.9 Down syndrome, unspecified; K59.00 Constipation, unspecified
CPT/HCPCS: 80307; 83036; 84439; 84443; 87081; 87086; J1815